=== PATIENT | female | born 1975 | race Caucasian/White ===

== ENCOUNTER 2024-09-30 10:34 | Observation (INO) | payer OTHER ==
--- NOTE | 2024-09-30 11:00 | ED ---
General Adult HPI - General Chief complaint: Neuro Symptoms/Deficit Stated complaint: Vision issue,nausea Time Seen by Provider: 09/30/24 10:48 Source: patient, family, RN notes reviewed Mode of arrival: wheelchair Limitations: no limitations - History of Present Illness Initial comments: Patient is a 49-year-old female who presents emergency department with concerns with dizziness. Onset of symptoms was yesterday. Symptoms have progressively worsened since that time and now becoming severe. Patient feels dizzy, somewhat spinning type sensation. Patient has difficulty with vision which seems to extremely worsen her symptoms. Patient does have some photophobia. Patient may have a mild headache. No weakness. No loss of sensation. No confusion or speech difficulty. No history of similar symptoms previously. - Related Data Home Medications Medication Instructions Recorded Confirmed No Known Home Medications 09/30/24 09/30/24 Allergies Allergy/AdvReac Type Severity Reaction Status Date / Time Penicillins Allergy Unknown Verified 09/30/24 13:37 Sulfa (Sulfonamide Allergy Unknown Verified 09/30/24 13:37 Antibiotics) Review of Systems ROS Statement: Those systems with pertinent positive or pertinent negative responses have been documented in the HPI. ROS Other: All systems not noted in ROS Statement are negative. Constitutional: Denies: fever Eyes: Reports: as per HPI. Denies: eye pain ENT: Denies: ear pain Respiratory: Denies: cough, dyspnea Cardiovascular: Denies: chest pain Endocrine: Denies: fatigue Gastrointestinal: Reports: nausea, vomiting. Denies: abdominal pain Neurological: Reports: as per HPI, vertigo. Denies: weakness, confusion Past Medical History Past Medical History: No Reported History History of Any Multi-Drug Resistant Organisms: None Reported Past Surgical History: Appendectomy, Orthopedic Surgery Past Psychological History: No Psychological Hx Reported Smoking Status: Vaper Past Alcohol Use History: Occasional Past Drug Use History: None Reported General Exam Limitations: no limitations General appearance: alert, in no apparent distress Head exam: Present: normocephalic Eye exam: Present: normal appearance, PERRL, EOMI, nystagmus ENT exam: Present: normal oropharynx Neck exam: Present: normal inspection. Absent: tenderness, meningismus Respiratory exam: Present: normal lung sounds bilaterally Cardiovascular Exam: Present: regular rate, normal rhythm GI/Abdominal exam: Present: soft. Absent: tenderness Extremities exam: Present: normal inspection Neurological exam: Present: alert, oriented X3, CN II-XII intact. Absent: motor sensory deficit Expanded Neurological exam: Present: protecting the airway Patient oriented to: Present: person, place, time Cranial nerves: EOM's Intact: Normal Sensory exam: Upper Extremity Light Touch: Normal, Lower Extremity Light Touch: Normal Motor strength exam: RUE: 5, LUE: 5, RLE: 5, LLE: 5 Eye Response: (4) open spontaneously Motor Response: (6) obeys commands Verbal Response: (5) oriented Psychiatric exam: Present: normal affect, normal mood Skin exam: Present: normal color Course Vital Signs 09/30/24 09/30/24 09/30/24 10:41 11:15 11:27 Temperature 97.3 F L 97.6 F Pulse Rate 68 48 L 62 Respiratory 18 18 16 Rate Blood Pressure 129/88 133/91 136/90 O2 Sat by Pulse 99 100 100 Oximetry 09/30/24 09/30/24 09/30/24 11:42 11:57 12:12 Temperature Pulse Rate 63 58 L 54 L Respiratory 18 16 14 Rate Blood Pressure 136/95 122/87 135/90 O2 Sat by Pulse 100 99 100 Oximetry 09/30/24 09/30/24 09/30/24 12:27 12:42 13:10 Temperature Pulse Rate 50 L 57 L 57 L Respiratory 14 14 16 Rate Blood Pressure 132/92 132/89 133/87 O2 Sat by Pulse 99 100 100 Oximetry EKG Findings - EKG Results: EKG: interpreted by ERMD (First-degree AV block with a OR of 212), sinus rhythm, normal axis, normal QRS, normal ST/T Medical Decision Making - Medical Decision Making Was pt. sent in by a medical professional or institution (, PA, HOTEL MAINTENANCE ENGINEER, urgent care, hospital, or intermediate...) When possible be specific @ -No Did you speak to anyone other than the patient for history (EMS, parent, family, police, friend...)? What history was obtained from this source @ -Family is present and helps provide additional history including onset of symptoms and progression Did you review nursing and triage notes (agree or disagree)? Why? @ -I reviewed and agree with nursing and triage notes Were old charts reviewed (outside hosp., previous admission, EMS record, old EKG, old radiological studies, urgent care reports/EKG's, intermediate records)? Report findings @ -No old charts were reviewed Differential Diagnosis (chest pain, altered mental status, abdominal pain women, abdominal pain men, vaginal bleeding, weakness, fever, dyspnea, syncope, headache, dizziness, GI bleed, back pain, seizure, CVA, palpatations, mental health, musculoskeletal)? @ -Differential Dizziness: Benign paroxysmal positional Vertigo, Meniere's disease, otitis media, acoustic neuroma, vertebrobasilar insufficiency, cerebellar stroke, encephalitis, hypovolemic, arrhythmia, coronary artery syndrome, anemia, this is not meant to be an all-inclusive list EKG interpreted by me (3pts min.). @ -As above X-rays interpreted by me (1pt min.). @ -Chest x-ray shows no acute process CT interpreted by me (1pt min.). @ -CT scan of the brain shows no acute process U/S interpreted by me (1pt. min.). @ -None done What testing was considered but not performed or refused? (CT, X-rays, U/S, labs)? Why? @ -None What meds were considered but not given or refused? Why? @ -None Did you discuss the management of the patient with other professionals (p rofessionals i.e. , PA, HOTEL MAINTENANCE ENGINEER, lab, RT, psych nurse, geriatric social work professor, ammonia nitrate operator, teacher, biological technical officer, disease case manager rn)? Give summary @ -Case discussed with Dr. Alberto who will admit covering hospital call Was smoking cessation discussed for >3mins.? @ -No Was critical care preformed (if so, how long)? @ -No Were there social determinants of health that impacted care today? How? (Homelessness, low income, unemployed, alcoholism, drug addiction, transportation, low edu. Level, literacy, decrease access to med. care, halfway, rehab)? @ -No Was there de-escalation of care discussed even if they declined (Discuss DNR or withdrawal of care, Hospice)? DNR status @ -No What co-morbidities impacted this encounter? (DM, HTN, Smoking, COPD, CAD, Cancer, CVA, ARF, Chemo, Hep., AIDS, mental health diagnosis, sleep apnea, morbid obesity)? @ -None Was patient admitted / discharged? Hospital course, mention meds given and route, prescriptions, significant lab abnormalities, going to OR and other perti neangela info. @ -Patient presents with dizziness and has significant nystagmus on exam. I do question if patient could have a component of vertical nystagmus. Patient will be admitted with neurology consult. Admission orders written. Patient reevaluated and has had some improvement of symptoms on each evaluation however still has symptoms. Patient and family updated Undiagnosed new problem with uncertain prognosis? @ -No Drug Therapy requiring intensive monitoring for toxicity (Heparin, Nitro, Insulin, Cardizem)? @ -No Were any procedures done? @ -No Diagnosis/symptom? @ -Intractable vertigo Acute, or Chronic, or Acute on Chronic? @ -Acute Uncomplicated (without systemic symptoms) or Complicated (systemic symptoms)? @ -Default Side effects of treatment? @ -No Exacerbation, Progression, or Severe Exacerbation? @ -No Poses a threat to life or bodily function? How? (Chest pain, USA, DC, pneumonia, PE, COPD, DKA, ARF, appy, cholecystitis, CVA, Diverticulitis, Homicidal, Suicidal, threat to staff... and all critical care pts) @ -Threat to neurological function - Lab Data Result diagrams: 09/30/24 11:04 09/30/24 11:04 Lab Results 09/30/24 09/30/24 09/30/24 Range/Units 11:04 11:04 11:04 WBC 4.3 (3.8-10.6) k/uL RBC 4.95 (3.80-5.40) m/uL Hgb 15.7 (11.4-16.0) gm/dL Hct 48.2 H (34.0-46.0) % MCV 97.4 (80.0-100.0) fL MCH 31.7 (25.0-35.0) pg MCHC 32.5 (31.0-37.0) g/dL RDW 12.0 (11.5-15.5) % Plt Count 255 (150-450) k/uL MPV 7.1 Neutrophils % 64 % Lymphocytes % 28 % Monocytes % 3 % Eosinophils % 3 % Basophils % 1 % Neutrophils # 2.7 (1.3-7.7) k/uL Lymphocytes # 1.2 (1.0-4.8) k/uL Monocytes # 0.1 (0-1.0) k/uL Eosinophils # 0.1 (0-0.7) k/uL Basophils # 0.0 (0-0.2) k/uL PT 10.6 (10.0-12.5) sec INR 1.0 (<1.2) APTT 26.7 (22.0-30.0) sec Sodium 136 L (137-145) mmol/L Potassium 4.3 (3.5-5.1) mmol/L Chloride 104 (98-107) mmol/L Carbon Dioxide 26 (22-30) mmol/L Anion Gap 6 mmol/L BUN 13 (7-17) mg/dL Creatinine 0.75 (0.52-1.04) mg/dL Est GFR (CKD-EPI)AfAm >90 (>60 ml/min/1.73 sqM) Est GFR (CKD-EPI)NonAf >90 (>60 ml/min/1.73 sqM) Glucose 94 (74-99) mg/dL Calcium 9.5 (8.4-10.2) mg/dL Total Bilirubin 0.9 (0.2-1.3) mg/dL AST 27 (14-36) U/L ALT 33 (4-34) U/L Alkaline Phosphatase 65 (38-126) U/L Creatine Kinase 128 (30-135) U/L Total Protein 6.7 (6.3-8.2) g/dL Albumin 4.4 (3.5-5.0) g/dL Disposition Clinical Impression: Vertigo Disposition: ADMITTED IP TO THIS HOSP Is patient prescribed a controlled substance at d/c from ED?: No Referrals: None,Stated [Primary Care Provider] - 1-2 days Time of Disposition: 13:57
[2024-09-30] MEDS: METOCLOPRAMIDE 5 MG/ML 2 ML VIAL IVP STA ×2 (11:12→11:47)
[2024-09-30 11:27] LABS: Basophils % (A) 1 %; Eosinophils # (A) 0.1 k/uL (0-0.7); Eosinophils % (A) 3 %; HCT 48.2 % (34.0-46.0); HGB 15.7 gm/dL (11.4-16.0); Lymphocytes # (A) 1.2 k/uL (1.0-4.8); Lymphocytes % (A) 28 %; MCH 31.7 pg (25.0-35.0); MCHC 32.5 g/dL (31.0-37.0); MCV 97.4 fL (80.0-100.0); Mean Platelet Volume 7.1; Monocytes # (A) 0.1 k/uL (0-1.0); Monocytes % (A) 3 %; Neutrophils # (A) 2.7 k/uL (1.3-7.7); Neutrophils % (A) 64 %; Platelet Count 255 k/uL (150-450); RBC 4.95 m/uL (3.80-5.40); WBC 4.3 k/uL (3.8-10.6)
[2024-09-30 11:40] LABS: Partial Thromboplastin Time 26.7 sec (22.0-30.0); Prothrombin Time 10.6 sec (10.0-12.5)
[2024-09-30 11:44] LABS: ALT 33 U/L (4-34); AST 27 U/L (14-36); African American GFR (CKD) >90 (>60 ml/min/1.73 sqM); Albumin 4.4 g/dL (3.5-5.0); Alkaline Phosphatase 65 U/L (38-126); Anion Gap 6 mmol/L; Blood Urea Nitrogen 13 mg/dL (7-17); Calcium 9.5 mg/dL (8.4-10.2); Carbon Dioxide 26 mmol/L (22-30); Chloride 104 mmol/L (98-107); Creatine Kinase 128 U/L (30-135); Glucose 94 mg/dL (74-99); Non-African American GFR(CKD) >90 (>60 ml/min/1.73 sqM); Potassium 4.3 mmol/L (3.5-5.1); Sodium 136 mmol/L (137-145); Total Bilirubin 0.9 mg/dL (0.2-1.3); Total Protein 6.7 g/dL (6.3-8.2)
--- NOTE | 2024-09-30 11:56 | CT ---
EXAMINATION TYPE: CT brain wo con DATE OF EXAM: 09/30/2024 COMPARISON: None CLINICAL INDICATION: Female, 49 years old with history of Neuro deficit, acute, stroke suspected; PHH , DIZZY TECHNIQUE: CT of the brain performed without contrast with sagittal and coronal reformats. CT DLP: [address] CTDI: mGy Automated exposure control for dose reduction was used. FINDINGS: There is no acute intracranial hemorrhage, mass effect, or midline shift identified. The ventricles and sulci are within normal limits in size. The globes are intact and the visualized sinuses are bill ar. IMPRESSION: No acute intracranial hemorrhage, mass effect, or midline shift is seen. [facility], , 09/30/2024 11:54 AM
--- NOTE | 2024-09-30 12:03 | XR ---
EXAMINATION TYPE: XR chest 2V DATE OF EXAM: 09/30/2024 CLINICAL HISTORY: altered mental status TECHNIQUE: Frontal and lateral views of the chest are obtained. COMPARISON: None FINDINGS: There is no focal air space opacity, pleural effusion, or pneumothorax seen. The cardiac silhouette size is within normal limits. The osseous structures are intact. IMPRESSION: No acute cardiopulmonary process. [facility], , 09/30/2024 12:01 PM
[2024-09-30] MEDS: LORazepam 2 MG/ML INJ IV STA (12:18)
[2024-09-30] MEDS: ONDANSETRON 4 MG/2 ML VIAL IVP STA (12:19)
[2024-09-30] MEDS: MECLIZINE 12.5 MG TAB PO STA (12:20)
--- NOTE | 2024-09-30 12:36 | CT ---
EXAMINATION TYPE: CT angio head neck DATE OF EXAM: 09/30/2024 12:08 PM COMPARISON: None. CLINICAL INDICATION: Female, 49 years old with history of Neuro deficit, acute, stroke suspected, TANIYA ESCOBAR, TECHNIQUE: Axially acquired helical CT Angiogram of the Neck was obtained with and without contrast. Axial images are supplemented with coronal and sagittal MIP reconstructions. 3D reconstructions were also performed and were post-processed at an independent workstation. Estimated carotid stenosis was calculated using the NASCET criteria. Contrast CTA of the [place] was performed 3-D recons truction imaging obtained at a separate workstation. IV CONTRAST: with IV Contrast, patient injected with 65 mL of Isovue 370. (None if empty) CT DLP: 328.7 mGycm, Automated exposure control for dose reduction was used. FINDINGS: NECK: Right carotid system: Mild plaque is seen of the right common carotid artery. There is mild plaque a lso noted at the carotid bulb and proximal ICA. No significant diameter reduction. ECA is patent. Right vertebral artery appears unremarkable. Left carotid system: Mild plaque is seen of the left common carotid artery. There is mild plaque als o noted at the carotid bulb and proximal ICA. No significant diameter reduction. ECA is patent. Lef t vertebral artery appears unremarkable. Calcified nodule right thyroid lobe. BRAIN: Vertebrobasilar system as well as intracranial portions of the internal carotid arteries and their ma johnny tributaries are patent. I do not see evidence for sizable aneurysm or vascular malformation. Pl ease note MRI provides greater sensitivity and specificity. Visualized brain appears grossly unremar kable. IMPRESSION: 1. No evidence for hemodynamically significant stenosis at the carotid bifurcations. No significant diameter reduction to account for the patient's symptoms. 2. No evidence for intracranial aneurysm or high-grade stenosis. [facility], , 09/30/2024 12:34 PM
[2024-09-30] MEDS ORDERED: NALOXONE 0.4 MG/ML 1 ML VIAL IV PRN (13:57)
[2024-09-30] MEDS ORDERED: MECLIZINE 25 MG TAB PO PRN (14:33)
[2024-09-30] MEDS ORDERED: ONDANSETRON 4 MG/2 ML VIAL IVP PRN (14:33)
[2024-09-30] MEDS ORDERED: LORazepam 2 MG/ML INJ IV PRN (14:33)
[2024-09-30] MEDS: SCOPOLAMINE 1 MG/72 HR PATCH TRANSDERM STA (14:34)
--- NOTE | 2024-09-30 14:34 | P.HPIM ---
History of Present Illness H&P Date: 09/30/24 49 year old F with no PMH presents to the ED for dizziness. She reports dizziness described as room spinning sensation that started yesterday. Vertigo is associated with nausea, vomiting and light sensitivity. She denies hearing loss. She denies head trauma. She denies recent infections. Symptoms worsened with head movement. No numbness/weakness/tingling of the extremities. In the ED she underwent extensive evaluation. BP 133/87, HR 57, RR 16, 100% on RA. CBC, Coag panel, CMP significant for Hct 48.2, Na 136. CT brain neg. CTA head and neck showed some minimal plaques. CXR neg. EKG sinus bradycardia. Patient admitted for further workup and management. General: non toxic, mild distress, appears at stated age Derm: warm, dry Head: atraumatic, normocephalic, symmetric Eyes: EOMI, no lid lag, anicteric sclera Mouth: no lip lesion, mucus membranes moist Cardiovascular: S1S2 diomedes, no murmur Lungs: CTA bilateral, no rhonchi, no rales , no accessory muscle use Ext: no gross muscle atrophy, no edema, no contractures Neuro: No FND Psych: Alert and oriented Vertigo: Likely peripheral cause. CT brain + CTA head and neck negative. Meclizine 25 mg PO QID PRN, Ativan 1 mg IV Q4H PRN, Zofran 4 mg IV Q6H PRN. Neurology consult. CODE STATUS: FULL CODE. DVT Prophylaxis: SCDs GI Prophylaxis: Designated medical POA if patient is not able to make medical decisions for themselves: I have reviewed the following corporate learning consultant notes: ED note I have reviewed the results of the following tests: As above. I have ordered the following tests: I have discussed the care of this patient with the following independent historian: . I have independently interpreted the following test below: EKG I have discussed the management of this patient with the following physician: Past Medical History Past Medical History: No Reported History History of Any Multi-Drug Resistant Organisms: None Reported Past Surgical History: Appendectomy, Orthopedic Surgery Past Psychological History: No Psychological Hx Reported Smoking Status: Vaper Past Alcohol Use History: Occasional Past Drug Use History: None Reported Medications and Allergies Home Medications Medication Instructions Recorded Confirmed Type No Known Home Medications 09/30/24 09/30/24 History Allergies Allergy/AdvReac Type Severity Reaction Status Date / Time Penicillins Allergy Unknown Verified 09/30/24 13:37 Sulfa (Sulfonamide Allergy Unknown Verified 09/30/24 13:37 Antibiotics) Physical Exam Vitals: Vital Signs Temp Pulse Resp BP Pulse Ox 09/30/24 13:10 57 L 16 133/87 100 09/30/24 12:42 57 L 14 132/89 100 09/30/24 12:27 50 L 14 132/92 99 09/30/24 12:12 54 L 14 135/90 100 09/30/24 11:57 58 L 16 122/87 99 09/30/24 11:42 63 18 136/95 100 09/30/24 11:27 62 16 136/90 100 09/30/24 11:15 97.6 F 48 L 18 133/91 100 09/30/24 10:41 97.3 F L 68 18 129/88 99 Intake and Output 09/29/24 09/30/24 09/30/24 22:59 06:59 14:59 Other: Weight 54.431 kg Results CBC & Chem 7: 09/30/24 11:04 09/30/24 11:04 Labs: Abnormal Lab Results - Last 24 Hours (Table) 09/30/24 09/30/24 Range/Units 11:04 11:04 Hct 48.2 H (34.0-46.0) % Sodium 136 L (137-145) mmol/L
[2024-09-30] MEDS: SODIUM CHLORIDE 0.9% 1,000 ML IV SCH (14:35)
[2024-09-30] MEDS: MECLIZINE 25 MG TAB PO SCH (17:54)
[2024-09-30] MEDS: METOCLOPRAMIDE 5 MG/ML 2 ML VIAL IVP SCH (17:54)
--- NOTE | 2024-10-01 10:07 | P.CNNES ---
History of Present Illness Consult date: 10/01/24 Requesting physician: Emre Vargas Reason for Consult: vertigo, nystagmus History of Present Illness: This is a 49-year-old woman who presented emergency department because of dizziness. She stated that her symptoms began this past Wednesday and she felt the room was spinning with any position but felt better when she was resting. She also had nausea and vomiting yesterday. She denies any focal weakness, speech difficulty or visual disturbance. She had minimal ringing of the ears. She denies any recent sickness. Denies any history of stroke. She feels healthy otherwise. She stated that since she has been in the hospital she is drastically better and she feels her dizziness is so much better that she is able to tolerate food she is able to move around compared to initial presentation. Some of the workup during this hospital visit consisted of: I reviewed the lab workup. CT of the head is reported as no acute intracranial hemorrhage, mass effect or midline shift. I personally reviewed the CT and agree with the report. CT angiography of the head and neck is reported as no evidence of for hemodynamically saphenous stenosis at the carotid bifurcation. No significant diameter reduction to account for the patient symptoms. No evidence of intracranial aneurysm or high-grade stenosis. Review of Systems As per HPI. Past Medical History Past Medical History: No Reported History History of Any Multi-Drug Resistant Organisms: None Reported Past Surgical History: Appendectomy, Orthopedic Surgery Past Anesthesia/Blood Transfusion Reactions: No Reported Reaction Past Psychological History: No Psychological Hx Reported Smoking Status: Vaper Past Alcohol Use History: Occasional Past Drug Use History: None Reported Medications and Allergies Home Medications Medication Instructions Recorded Confirmed Type No Known Home Medications 09/30/24 09/30/24 History Allergies Allergy/AdvReac Type Severity Reaction Status Date / Time Penicillins Allergy Unknown Verified 09/30/24 13:37 Sulfa (Sulfonamide Allergy Unknown Verified 09/30/24 13:37 Antibiotics) Physical Examination - Vital Signs Vital Signs: Vital Signs Temp Pulse Pulse Resp BP BP Pulse Ox 10/01/24 07:00 97.4 F L 60 15 121/74 100 10/01/24 01:26 97.6 F 71 17 91/60 100 09/30/24 20:00 97.8 F 64 16 121/71 96 09/30/24 16:08 97.8 F 57 L 16 147/79 99 09/30/24 15:50 97.6 F 55 L 14 132/88 100 09/30/24 15:30 57 L 15 118/85 99 09/30/24 15:12 60 14 121/92 100 09/30/24 14:35 97.8 F 63 16 119/86 99 09/30/24 13:10 57 L 16 133/87 100 09/30/24 12:42 57 L 14 132/89 100 09/30/24 12:27 50 L 14 132/92 99 09/30/24 12:12 54 L 14 135/90 100 09/30/24 11:57 58 L 16 122/87 99 09/30/24 11:42 63 18 136/95 100 09/30/24 11:27 62 16 136/90 100 09/30/24 11:15 97.6 F 48 L 18 133/91 100 09/30/24 10:41 97.3 F L 68 18 129/88 99 Intake and Output 09/30/24 10/01/24 10/01/24 22:59 06:59 14:59 Other: # Voids 1 1 GENERAL: The patient is lying in bed and is not in acute distress. NEUROLOGICAL: Higher mental function: The patient is awake, alert, oriented to self, place and time. Patient is following commands. No aphasia and no neglect. Cranial nerves: The pupils are round, equal and reactive to light and accommodation. Visual joseph are full to confrontation throughout. Extraocular movement is nystagmus looking to right and it was horizontal nystagmus is noted. Facial sensation is normal to touch throughout. The facial strength is normal throughout. Hearing is normal bilaterally to hand rub. Tongue is midline and moved [id number] without any difficulty. No dysarthria is noted. Shoulder shrug is normal bilaterally. Motor: Gait is able to walk byself and was minimally slow since was cautious but no swaying towards one side or other. The strength is 5 over 5 throughout. Normal tone and bulk. Cerebellum: Normal finger to nose heel to hardy bilaterally. Sensation: Sensation is normal to touch throughout Plantars are downgoing bilaterally. Results - Laboratory Findings CBC and BMP: 09/30/24 11:04 09/30/24 11:04 Abnormal Lab Findings: Abnormal Labs 09/30/24 09/30/24 11:04 11:04 Hct 48.2 H Sodium 136 L Assessment and Plan Assessment: This is a 49-year-old woman who present emergency department because of dizziness with nausea vomiting since this past Wednesday and she feels her symptoms is with position in the room spinning around her. She feels likely better today compared to initial presentation. Acute vertigo and on examination had was looking to the right. Otherwise no focal deficit. This seems peripheral. CTA and CT of the head is unremarkable Plan: Patient is on meclizine 25 mg 1 tablet 4 times daily scheduled Antivert and I recommended to be on for 7 days and after that as needed. She received Reglan, Zofran, scopolamine patch and is on IV fluids. Will not pursue the MRI since the patient symptoms is drastically improved compared to initial presentation and this seems more peripheral. Recommend the patient to follow-up with the ENT as an outpatient and consider vestibular rehab therapy and if continues to have symptoms recommend MRI of the brain and that can be considered as an outpatient since her symptoms is better. There is no MRI availability this weekend. Will defer the rest of the medical management to primary and other specialist If Patient continues to be doing well by noon today then the patient is cleared from a neurologic perspective. The plan discussed with the patient and her nurse Thank for the consultation Time with Patient: Greater than 30
--- NOTE | 2024-10-01 13:01 | P.DS ---
Providers Date of admission: 09/30/24 13:57 Expected date of discharge: 10/01/24 Attending physician: Edilberto Otoole Consults: 09/30/24 13:57 Consult Physician Urgent Consulting Provider: Rickey Jean Consult Reason/Comments: vertigo, nystagmus Do you want consulting provider notified?: Yes Primary care physician: Stated None Hospital Course: 49 year old F with no PMH presents to the ED for dizziness. She reports dizziness described as room spinning sensation that started yesterday. Vertigo is associated with nausea, vomiting and light sensitivity. She denies hearing lo ss. She denies head trauma. She denies recent infections. Symptoms worsened with head movement. No numbness/weakness/tingling of the extremities. In the ED she underwent extensive evaluation. BP 133/87, HR 57, RR 16, 100% on RA. CBC, Coag panel, CMP significant for Hct 48.2, Na 136. CT brain neg. CTA head and neck showed some minimal plaques. CXR neg. EKG sinus bradycardia. Patient admitted for further workup and management. 10/01 Patient was seen and examined. Feeling better still a little unstead on her feet. Evaluated by Neurology, recommends ENT outpatient and Meclizine. Hopeful plans for discharge later on today if symptoms improved. General: non toxic, no distress, appears at stated age Derm: warm, dry Head: atraumatic, normocephalic, symmetric Eyes: EOMI, no lid lag, anicteric sclera Mouth: no lip lesion, mucus membranes moist Cardiovascular: good distal perfusion in all 4 extremities Lungs: breathing comfortably, no accessory muscle use Ext: no gross muscle atrophy, no edema, no contractures Neuro: No FND Psych: Alert and oriented Discharge Diagnosis: Vertigo This complex discharge took 35 minutes to complete. Patient Condition at Discharge: Stable Plan - Discharge Summary Discharge Rx Participant: Yes New Discharge Prescriptions: New Meclizine [Antivert] 25 mg PO QID PRN #30 tab PRN Reason: Vertigo Discharge Medication List Meclizine [Antivert] 25 mg PO QID PRN #30 tab 10/01/24 [Rx] Follow up Appointment(s)/Referral(s): Jean Carlos Barrett MD [STAFF PHYSICIAN] - 1 Week None,Stated [Primary Care Provider] - 1-2 days Patient Instructions/Handouts: Benign Paroxysmal Positional Vertigo (DC) Discharge Disposition: HOME SELF-CARE
[2024-10-02 02:33] VITALS: RESP 16
--- NOTE | 2024-10-02 13:00 | P.DS ---
Providers Date of admission: 09/30/24 13:57 Attending physician: Edilberto Otoole Consults: 09/30/24 13:57 Consult Physician Urgent Consulting Provider: Rickey Jean Consult Reason/Comments: vertigo, nystagmus Do you want consulting provider notified?: Yes Primary care physician: Stated None Hospital Course: 49 year old F with no PMH presents to the ED for dizziness. She reports dizziness described as room spinning sensation that started yesterday. Vertigo is associated with nausea, vomiting and light sensitivity. She denies hearing loss. She denies head trauma. She denies recent infections. Symptoms worsened with head movement. No numbness/weakness/tingling of the extremities. In the ED she underwent extensive evaluation. BP 133/87, HR 57, RR 16, 100% on RA. CBC, Coag panel, CMP significant for Hct 48.2, Na 136. CT brain neg. CTA head and neck showed some minimal plaques. CXR neg. EKG sinus bradycardia. Patient admitted for further workup and management. She was seen by neurology who had deferred mri imaging. she was started on meclizine and had improvement of her symptoms. she was discharged home on 10/02. Continue meclizine as prescibed. may benefit from vestibular rehba outpatient Assessment: Vertigo, probably bPPV Patient Condition at Discharge: Stable Plan - Discharge Summary Discharge Rx Participant: Yes New Discharge Prescriptions: New Meclizine [Antivert] 25 mg PO QID PRN #30 tab PRN Reason: Vertigo Discharge Medication List Meclizine [Antivert] 25 mg PO QID PRN #30 tab 10/01/24 [Rx] Follow up Appointment(s)/Referral(s): Jean Carlos Barrett MD [STAFF PHYSICIAN] - 1 Week None,Stated [Primary Care Provider] - 1-2 days Patient Instructions/Handouts: Benign Paroxysmal Positional Vertigo (DC) Discharge Disposition: HOME SELF-CARE
[2024-10-02 13:02] VITALS: BP 115/76; PULSE 46; TEMP 97.4
== END 2024-10-02 14:02 | disposition home or self-care (01) ==
LOC: EC 10:34 → 6NMEDSUR 13:57
PROVIDERS: ADMIT Student in an Organized Health Care Education/Training Program; ATTEND Student in an Organized Health Care Education/Training Program
DX: R42 Dizziness and giddiness (principal); R11.2 Nausea with vomiting, unspecified; F17.290 Nicotine dependence, other tobacco product, uncomplicated; Z88.0 Allergy status to penicillin; Z88.2 Allergy status to sulfonamides
CPT/HCPCS: 96376 ×4; 96374; 96375; 99285; 36415; 93005; 80053; 82550; 85025; 85610; 85730; 71046; 70496; 70450; 70498; G0378 ×3; J2060; J2765 ×3; J2405; Q9967

== ENCOUNTER → 2024-11-27 | Outpatient (CLI) | payer OTHER ==
--- NOTE | 2024-11-30 11:55 | MM ---
Reason for Exam: Screening (asymptomatic). Last mammogram was performed 5 year(s) and 7 month(s) ago. Patient History: Menarche at age 15. First Full-Term at age 19. Left ovary removed at age 44. Right ovary removed at age 44. Hysterectomy at age 44. Postmenopausal. Mother had breast cancer, age 60. Risk Values: Marilyn 5 year model risk: 1.6%. NCI Lifetime model risk: 14.9%. Prior Study Comparison: 04/10/2019 Bilateral Screening Mammogram, [place] [facility]. Tissue Density: The breasts are heterogeneously dense, which may obscure small masses. Findings: Analyzed By CAD. Areas of asymmetric density are unchanged. Redemonstrated retained surgical clip at the left axilla; clinically correlate. There is no suspicious group of microcalcifications or new suspicious mass in either breast. Overall Assessment: Benign, BI-RAD 2 Management: Screening Mammogram of both breasts in 1 year. Given the patient's dense breast tissue, supplementary screening can be considered with breast ultrasound. Patient should continue monthly self-breast exams. A clinical breast exam by your physician is recommended on an annual basis. This exam should not preclude additional follow-up of suspicious palpable abnormalities. Note on Marilyn scores and lifetime risk: 1. A Marilyn score greater than 3% is considered moderate risk. If this is the case, consider specialist referral to assess eligibility for a risk reducing agent. 2. If overall lifetime risk for the development of breast cancer is 20% or higher, the patient may qualify for future screening with alternating mammogram and breast MRI. [facility], , 11/30/2024 11:52 AM. Electronically signed and approved by: Christianne Chang M.D. Radiologist
== END | disposition home or self-care (01) ==
LOC: RADMAMWWP 15:16
PROVIDERS: ATTEND Family Medicine
DX: Z12.31 Encounter for screening mammogram for malignant neoplasm of breast (principal); R92.333 Mammographic heterogeneous density, bilateral breasts; Z78.0 Asymptomatic menopausal state; Z80.3 Family history of malignant neoplasm of breast; Z90.722 Acquired absence of ovaries, bilateral
CPT/HCPCS: 77063; 77067